=== PATIENT | male | born 1955 | race Caucasian/White ===

== ENCOUNTER → 2016-09-27 | Outpatient (CLI) | payer OTHER ==
[~2016-09-27] MED LIST: APRESOLINE-DPS25 MG PO; AZELASTINE137 MCG/0. NS; BUMETANIDE2 MG PO; BUMEX DPS1 MG PO; CARDIZEM CD DP120 MG PO; CARVEDILOL25 MG PO; CATAPRES0.3 MG PO; COUMADIN4 MG PO; DAILY MULTIPLE1 EAC1 PO; DUONEB DPS3 ML IH; FEOSOL-DPS325 MG PO; FLEXERIL-DPS10 MG PO; FLONASE 0.05% D16 GM NS; GLUCOPHAGE1000 MG PO; GLUCOTROL DPS10 MG PO; IMDUR DPS60 MG PO; INVANZ1 GM IV; KENALOG OINT. 015 GM TP; KLOR-CON M2020 ME1 PO; LANOXIN250 MCG PO; LORCET PLUS 7.1 EACH PO; MIRALAX PACKET17 GM PO; MONTELUKAST SOD10 MG PO; NORCO 5-325 TA1 EACH PO; NOVOLOG100 UNIT/2 SQ; OXY IR DPS5 MG PO; PRILOSEC DPS20 MG PO; RIFAMPIN300 MG PO; SENOKOT DPS8.6 MG PO; SLOW-MAG71.5 MG PO; TYLENOL DPS325 MG PO; ULTRAM DPS50 MG PO; VANCO 1.251.25 GM/25 IV; ZESTRIL DPS40 MG PO; ZOCOR80 MG PO; ZYRTEC DPS10 MG PO
== END | disposition home or self-care (01) ==
LOC: PTH.S 09:21
DX: M00.9 Pyogenic arthritis, unspecified (principal)

== ENCOUNTER → 2016-10-04 | Outpatient (CLI) | payer OTHER | END | disposition home or self-care (01) | LOC: RAD.S 11:54 → PTH.S 12:00 → RAD.S 13:00 | PROC: 0S9D3ZZ Drainage of Left Knee Joint, Percutaneous Approach (ICD-10-PCS; principal; 2016-10-04) | DX: M00.9 Pyogenic arthritis, unspecified (principal); M79.89 Other specified soft tissue disorders; M25.562 Pain in left knee ==

== ENCOUNTER 2016-10-06 14:43 | Inpatient (IN) | payer OTHER ==
[~2016-10-06 14:43] MED LIST changes: -APRESOLINE-DPS25 MG PO; -AZELASTINE137 MCG/0. NS; -BUMETANIDE2 MG PO; -BUMEX DPS1 MG PO; -CARDIZEM CD DP120 MG PO; -CATAPRES0.3 MG PO; -COUMADIN4 MG PO; -DAILY MULTIPLE1 EAC1 PO; -DUONEB DPS3 ML IH; -FEOSOL-DPS325 MG PO; -FLONASE 0.05% D16 GM NS; -GLUCOPHAGE1000 MG PO; -IMDUR DPS60 MG PO; -INVANZ1 GM IV; -KENALOG OINT. 015 GM TP; -KLOR-CON M2020 ME1 PO; -LANOXIN250 MCG PO; -LORCET PLUS 7.1 EACH PO; -MONTELUKAST SOD10 MG PO; -NOVOLOG100 UNIT/2 SQ; -PRILOSEC DPS20 MG PO; -RIFAMPIN300 MG PO; -SLOW-MAG71.5 MG PO; -ULTRAM DPS50 MG PO; -VANCO 1.251.25 GM/25 IV; -ZESTRIL DPS40 MG PO; -ZOCOR80 MG PO; -ZYRTEC DPS10 MG PO
[2016-10-14] MEDS ORDERED: VANCO 1.251.25 GM/25 IV (13:42)
[2016-10-14] MEDS ORDERED: COUMADIN4 MG PO (13:49)
[2016-11-07] MEDS ORDERED: ZESTRIL DPS40 MG PO (14:03)
[2016-11-07] MEDS ORDERED: CARDIZEM CD DP120 MG PO (14:03)
[2016-11-07] MEDS ORDERED: COUMADIN4 MG PO ×2 (14:04)
[2016-11-07] MEDS ORDERED: ZOCOR80 MG PO (14:04)
[2016-11-07] MEDS ORDERED: MONTELUKAST SOD10 MG PO (14:05)
[2016-11-07] MEDS ORDERED: GLUCOPHAGE1000 MG PO (14:05)
[2016-11-07] MEDS ORDERED: PRILOSEC DPS20 MG PO (14:05)
[2016-11-07] MEDS ORDERED: FLONASE 0.05% D16 GM NS (14:06)
[2016-11-07] MEDS ORDERED: AZELASTINE137 MCG/0. NS (14:06)
[2016-11-07] MEDS ORDERED: CATAPRES0.3 MG PO (14:08)
[2016-11-07] MEDS ORDERED: DAILY MULTIPLE1 EAC1 PO (14:08)
[2016-11-07] MEDS ORDERED: KENALOG OINT. 015 GM TP (14:09)
[2016-11-07] MEDS ORDERED: ULTRAM DPS50 MG PO (14:09)
[2016-11-07] MEDS ORDERED: ZYRTEC DPS10 MG PO (14:09)
[2016-11-07] MEDS ORDERED: BUMETANIDE2 MG PO (14:10)
[2016-11-07] MEDS ORDERED: FEOSOL-DPS325 MG PO (14:10)
[2016-11-07] MEDS ORDERED: APRESOLINE-DPS25 MG PO (14:10)
[2016-11-07] MEDS ORDERED: RIFAMPIN300 MG PO (14:10)
[2016-11-07] MEDS ORDERED: LANOXIN250 MCG PO (14:11)
[2016-11-07] MEDS ORDERED: SLOW-MAG71.5 MG PO (14:11)
[2016-11-07] MEDS ORDERED: IMDUR DPS60 MG PO (14:11)
[2016-11-07] MEDS ORDERED: KLOR-CON M2020 ME1 PO (14:11)
[2016-11-07] MEDS ORDERED: DUONEB DPS3 ML IH (14:11)
[2016-11-07] MEDS ORDERED: LORCET PLUS 7.1 EACH PO (14:12)
[2016-11-07] MEDS ORDERED: NOVOLOG100 UNIT/2 SQ (14:12)
[2016-11-07] MEDS ORDERED: INVANZ1 GM IV (14:14)
[2016-11-07] MEDS ORDERED: CARVEDILOL25 MG PO (14:14)
[2016-11-07] MEDS ORDERED: BUMEX DPS1 MG PO (14:15)
== END 2016-10-13 15:31 | disposition home or self-care (01) | DRG 464 ==
DX: T84.54XA Infection and inflammatory reaction due to internal left knee prosthesis, initial encounter (principal); L03.116 Cellulitis of left lower limb; J96.10 Chronic respiratory failure, unspecified whether with hypoxia or hypercapnia; Z68.42 Body mass index [BMI] 45.0-49.9, adult; E66.01 Morbid (severe) obesity due to excess calories; I10 Essential (primary) hypertension; I48.2 Chronic atrial fibrillation; R31.29 Other microscopic hematuria; D64.9 Anemia, unspecified; I51.7 Cardiomegaly; L30.8 Other specified dermatitis; K21.9 Gastro-esophageal reflux disease without esophagitis; B95.61 Methicillin susceptible Staphylococcus aureus infection as the cause of diseases classified elsewhere; I87.2 Venous insufficiency (chronic) (peripheral); E11.9 Type 2 diabetes mellitus without complications; I25.10 Atherosclerotic heart disease of native coronary artery without angina pectoris; I48.91 Unspecified atrial fibrillation; G47.33 Obstructive sleep apnea (adult) (pediatric); Z95.5 Presence of coronary angioplasty implant and graft; Z87.891 Personal history of nicotine dependence

== ENCOUNTER 2016-10-16 10:05 | Inpatient (IN) | payer OTHER ==
[~2016-10-16] VITALS: Ht 177.8 cm; Wt 140.4 kg
[~2016-10-16 10:05] MED LIST changes: +COUMADIN4 MG PO; +VANCO 1.251.25 GM/25 IV
--- NOTE | 2016-10-19 11:06 | CO ---
ADMIT: 10/16/2016 RM/LOC: 314 [facility] MR#: [id number] [address] [address] MELVI BUTCHER [address] [facility] [place] [address] Consultation SEX: M AGE: 61 : 1955 DATE OF CONSULTATION: 10/17/2016 ATTENDING PHYSICIAN: Yue Macdonald CONSULTING PHYSICIAN: Elisabeth Leonardo MD REASON FOR CONSULT: Sepsis. Thank you, Dr. Macdonald, for the consult and involving me in this patient's care. HISTORY OF PRESENT ILLNESS: Mr. 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 He was admitted at the beginning of the month and underwent irrigation and debridement of his left prosthetic joint on October 07, 2016. He is allergic to penicillin, hence, was put on vancomycin for the infection. He was discharged on IV vancomycin and rifampin. Yesterday, while in the short-stay, he complained of significant shortness of breath and was transferred to ER for hypoxia. He required BiPAP. He was also noted to be in atrial fibrillation with rapid ventricular rate. A CTA chest was done, which did not show any pulmonary embolus and he was noted to have acute CHF and bilateral pulmonary edema. He is currently in ICU for the same. Per the patient, he had some subjective fevers at home and he was noted to have fever in the ER. Per the patient, since last 2 days, he had some serous drainage on the left knee and increased swelling. PAST MEDICAL HISTORY: Obesity; coronary artery disease, status post stenting; atrial fibrillation; hypertension; obstructive sleep apnea; hyperlipidemia. ALLERGIES: TO CEFACLOR AND PENICILLIN, WHICH CAUSES HIVES. SOCIAL HISTORY: He lives at home with his in [place]. Denies any smoking, alcohol, or recreational drug use. FAMILY HISTORY: Significant for heart disease and diabetes in his mother and cancer in his father. CURRENT MEDICATIONS: Include: 1. Catapres. 2. Coreg. 3. Coumadin. 4. Glucophage. 5. Glucotrol. 6. Rifampin 600 mg twice daily. 7. Singulair. 8. Multivitamin. 9. Zestril. 10.Zocor. ADMIT: 10/16/2016 RM/LOC: 314 [facility] MR#: [id number] [address] [address] MELVI BUTCHER [address] [facility] [place] [address] Consultation SEX: M AGE: 61 : 1955 11.Zyrtec. 12.Insulin sliding scale. 13.Kenalog cream. 14.Bumex. 15.Vancomycin 2 g once daily. REVIEW OF SYSTEMS: Ten-point review of systems negative except as mentioned in the HPI. PHYSICAL EXAMINATION: VITAL SIGNS: Current temperature 99.4, T-max 100.9, heart rate 92, respirations 16, blood pressure 115/83, 94% on 2 L. GENERAL: No acute distress. HEENT. Head, normocephalic and atraumatic. Extraocular movements intact. LYMPH: No palpable anterior/posterior cervical or supraclavicular lymphadenopathy. CHEST: Clear to auscultation bilaterally anteriorly. Mildly decreased breath sounds at bases. CARDIOVASCULAR: S1, S2 heard. Irregular rate and rhythm. ABDOMEN: Soft, obese, and nontender. SKIN: Diffuse macular rash is improving. MUSCULOSKELETAL: The left knee is warm, swollen, mild erythema around the micheal noted. On pressure, mild purulent drainage expressed from the inferior part of the incision and serosanguineous from middle part of the incision. PSYCH: Normal affect. Memory intact. ASSESSMENT AND PLAN: 1. Sepsis secondary to #2. 2. Left knee methicillin-sensitive Staphylococcus aureus prosthetic joint ADMIT: 10/16/2016 RM/LOC: 314 [facility] MR#: [id number] [address] [address] MELVI BUTCHER [address] [facility] [place] [address] Consultation SEX: M AGE: 61 : 1955 infection, status post I and D on 10/07/2016. Purulent drainage expressed from the incision site and he may need repeat washout. Orthopedics is on board. For now, continue with IV vancomycin and rifampin. I did take a swab for repeat culture. His blood cultures are negative so far. 3. Atrial fibrillation with rapid ventricular response. 4. Hypertension. 5. Neutrophilic dermatosis is improving. 6. Pulmonary edema. 7. Acute hypoxic respiratory failure. 8. Obesity. Thank you for the consult and I will continue to follow the patient. Elisabeth Leonardo MD/ hemalatha JOB #: [id number] CC: Yue Macdonald, Attending Physician Yue Macdonald, Family Physician
--- NOTE | 2016-10-19 14:08 | CO ---
ADMIT: 10/16/2016 RM/LOC: 314 [facility] MR#: [id number] [address] [address] MELVI BOYLE [address] [place] [address] Consultation SEX: M AGE: 61 : 1955 DATE OF CONSULTATION: 10/16/2016 ATTENDING PHYSICIAN: Yue Macdonald CONSULTING PHYSICIAN: Crescencio Thakkar MD CHIEF COMPLAINT: Shortness of breath. HISTORY OF PRESENT ILLNESS: The patient is a 61-year-old male, who has a previous history of permanent atrial fibrillation and coronary artery disease. Recently, he had been seeing Dr. Pink for some shortness of breath and is under his care. He had a recent echocardiogram, which was normal and a stress test which apparently did not demonstrate any significant ischemia. He also had been diagnosed with a left knee infection. He is currently undergoing antibiotic treatment IV for this. Because of shortness of breath while getting his IV antibiotics, he was admitted with possible heart failure. We are asked to see him for further evaluation. In speaking with the patient, he has not noticed any chest pain or chest tightness. He has noted that his heart rate is a little bit faster recently. His main complaint is shortness of breath. He does have some chronic lower extremity edema changes, but has not noticed any worsening edema. No other complaints. PAST MEDICAL HISTORY: Significant for: 1. Coronary artery disease with previous stenting of the RCA and LAD with chronically occluded circumflex by previous heart catheterization report. 2. Permanent atrial fibrillation. 3. Hypertension. 4. Obesity. 5. Hyperlipidemia. 6. Reflux. ALLERGIES AND INTOLERANCES: Ceclor. FAMILY HISTORY: Significant for mother, who had heart disease and diabetes. Father had cancer. SOCIAL HISTORY: Lives with his in [place]. He does not smoke or use any alcohol or drug use. REVIEW OF SYSTEMS: GENERAL: He does have some occasional fatigue. Denies fever, chills, sweats, rash, or weight loss. EYES: Denies double vision, blurred vision, cataracts, or glaucoma. ENT: He has some difficulty with hearing. Denies problems with nose, mouth or throat. PULMONARY: He has chronic shortness of breath. Denies cough, sputum production, asthma, emphysema or bronchitis. Denies snoring loudly, wakefulness at night, or fatigue upon awakening. GASTROINTESTINAL: Denies heartburn or difficulty swallowing. No change in bowel habits. Denies dark or bloody stools. No history of ulcers, hiatal ADMIT: 10/16/2016 RM/LOC: 314 [facility] MR#: [id number] [facility] [address] [address] [place] [address] [address] [facility] [place] [id number] Consultation SEX: M AGE: 61 : 1955 hernia, or gallbladder or liver disease. GENITOURINARY: Denies dysuria, hematuria, nocturia, urinary tract infection, or kidney stones. Denies history of renal insufficiency or failure. MUSCULOSKELETAL: He has arm and leg pains. Denies history of arthritis or gout. Denies muscle or joint pains. ENDOCRINE: Denies history of thyroid dysfunction or diabetes. HEMATOLOGIC: Denies history of anemia, easy bruising, or cancer. NEUROLOGIC: Denies chronic headaches, dizziness, syncope, stroke, seizures or numbness or tingling. PSYCHIATRIC: Denies history of mental illness or feelings of depression. PHYSICAL EXAMINATION: VITAL SIGNS: Blood pressure was 164/100, heart rate currently 90s to 110s, respirations 24, and temperature was 100.9 degrees Fahrenheit. SKIN: [place]umann, warm and dry. EYES: Sclerae clear. No xanthelasmas. ENT: Oral mucosa is pink and moist. No jugular venous distention or carotid bruits. CHEST: Respirations are even and unlabored. Lungs having diminished breath sounds. HEART: Irregularly irregular. ABDOMEN: Soft and nontender. MUSCULOSKELETAL: Gait is normal. EXTREMITIES: Having mild edema with chronic venous stasis changes present. PSYCHIATRIC: Alert and oriented. Mood and affect are appropriate. ASSESSMENT: 1. Permanent atrial fibrillation. 2. Cdlkj-dg-hndvmty diastolic heart failure. 3. Coronary artery disease. 4. Hypertension. 5. Hyperlipidemia. 6. Recent left knee infection. PLAN: At this point, the patient will undergo diuresis. He does have Bumex ordered and we will increase titration on this if needed for good volume removal. His heart rates are also little fast, so we will continue with rate control titrating up on medications as his blood pressure will tolerate, which should not be a big problem at the moment as he is pretty hypertensive. We will continue on his anticoagulation and decide further treatment as we go. Crescencio Thakkar MD/ hemalatha JOB #: [id number] CC: Yue Macdonald, Attending Physician ADMIT: 10/16/2016 RM/LOC: 314 [facility] MR#: [id number] [address] [place] [address] BO[place]VI [address] [address] [facility] [place] [address] Consultation SEX: M AGE: 61 : 1955 Yue Macdonald, Family Physician
--- NOTE | 2016-10-22 21:34 | ER ---
ADMIT: 10/16/2016 RM/LOC: ER [facility] MR#: [id number] [address] [address] MELVI BOYLE [address] [facility] [place] [address] Emergency Room Report SEX: M AGE: 61 : 1955 DATE: 10/16/2016 This 61-year-old gentleman, who was at the short stay, receiving outpatient IV antibiotic therapy for recent knee infection when he became acutely short of breath. He denied any other symptoms, merely that he could not catch his breath. He was uncertain whether it was worse with lying down or not. He does complain of nonproductive cough. It has been there for the past several days. Denied any chest pain or palpitations. REVIEW OF SYSTEMS: Essentially negative except for the above-mentioned. PAST HISTORY: Atrial fibrillation; hypertension; sleep apnea, for which wears he CPAP; recent knee surgery which was a washout for presumed infection. PHYSICAL EXAM: GENERAL: Reveals 61-year-old gentleman, in moderate amount of distress complaining of shortness of breath. LUNGS: Clear to auscultation other than some rhonchi at the bases bilaterally. Some mild wheezing. CARDIOVASCULAR: Regular rate and rhythm and rapid. ABDOMEN: Morbidly obese. EXTREMITIES: Reveal recent surgical site on left knee. He has numerous petechiae throughout his extremities. EMERGENCY ROOM COURSE: Sepsis workup was initiated. Pertinent labs; hemoglobin 9.1, platelets 152. BNP was 8369. Magnesium 1.4. CTA of the chest revealed no PE or congestive chest heart failure. IV diltiazem was given in the Emergency Department for rate control. When he returned from the CT scan, he became acutely hypoxic, his heart rate was in the 170s to 180s at fibrillation. The diltiazem drip was increased, BiPAP was initiated. Nitroglycerin was given sublingual and nitro drip was started. The patient reported feeling improved at time of this dictation. ADMISSION DIAGNOSES: 1. Exacerbation of congestive heart failure. 2. Atrial fibrillation. 3. Rapid ventricular rate. 4. Hypomagnesemia which was replenished in the Emergency Department with 2 g of mag sulfate. The patient is being admitted to the ICU. Hayden Carpenter MD/ hemalatha JOB #: [id number] CC: Hayden Carpenter MD, Attending Physician Carly Pulido, Family Physician
--- NOTE | 2016-10-24 11:27 | CO ---
ADMIT: 10/16/2016 RM/LOC: 314 [facility] MR#: [id number] [address] [address] MELVI BOYLE [address] [facility] [place] [address] Consultation SEX: M AGE: 61 : 1955 DATE OF CONSULTATION: 10/17/2016 ATTENDING PHYSICIAN: Yue Macdonald CONSULTING PHYSICIAN: Angelia Solomon MD SUBJECTIVE: Melvi is a 61-year-old male, who is known to our Orthopedic Service who had a recent left knee I and D with poly exchange and antibiotic bead placement due to septic left total knee arthroplasty done by Dr. Solomon on 10/07/2016. He was in the hospital until discharge last week on . He did well at home for the first couple of days and then over the weekend, started to have some serous drainage. He is on IV antibiotics daily vancomycin. He was in for that yesterday and was having shortness of breath. He was transferred over to the Emergency Department where he was evaluated and found to have BNP of 8369. There was some concern for sepsis as well. Apparently had a fever of 100.9. Due to shortness of breath, he was admitted and a Cardiology consultation was made. He was seen by Dr. Thakkar and is currently in the Intensive Care Unit being treated for atrial fibrillation with acute on chronic diastolic heart failure. Due to the recent knee surgery and serous drainage from the knee, orthopedic evaluation of the knee has been requested. OBJECTIVE: VITAL SIGNS: Vitals are currently stable. His temperature has been running in the 99.4 to 100.1 today. Please see vitals section on electronic medical record for complete details. GENERAL: This is an otherwise comfortable well-appearing 61-year-old male, who is in no distress. He is oriented x3, pleasant, interactive, and answers to all questions appropriately. EXTREMITIES: Exam of the left knee shows that his micheal are still in place status post I and D. On palpation, he really does not have a lot of pain and very mild tenderness is all, very minimal warmth right now. With palpation, I am able to express clear serous type fluid diffusely throughout the length of the incision except for the proximal portion, really not much comes out there, but the distal portion, I am able to get the fluid out. No appreciable effusion at this time and his range of motion is quite comfortable, lacks the last few degrees of terminal extension and flexion comfortably to 95, limited by some stiffness in the chair he is sitting in, but again it is not painful. He can actively extend and flex the knee without discomfort. Ligaments are stable. Patella tracks centrally. He has diffuse changes of chronic edema and stasis of the midtibia down. His foot is significantly swollen as well. Neurovascular status is otherwise intact. PERTINENT LABS: White count 7.7 today, down from 9.2 yesterday, hemoglobin 7.8, down from 9.1. Sedimentation rate last week was 120 on the 19th and CRP on the 4th for reference was 18.6. ASSESSMENT: Ten days status post I and D with polyethylene exchange and antibiotic beads for septic left total knee arthroplasty. ADMIT: 10/16/2016 RM/LOC: 314 [facility] MR#: [id number] [address] [place] [phone] MELVI BOYLE [address] [facility] [address] [place] [address] Consultation SEX: M AGE: 61 : 1955 PLAN: Based on what he looks like today, I do not see any surgical indications for rewashout. He does have serous drainage. I think the lot of this is coming from his fluid overload secondary to his congestive heart failure. If we can get his edema down with compression and elevation and continued use of his diuretic, I think that he will quit draining serous fluid. He is already on appropriate antibiotics. There really is not anything further to do for him surgically right now other than watchful waiting. We will continue to follow him through his hospital stay here and follow up with him on our scheduled planned date as well. Probably, since he is having the continued serous drainage, we will keep his micheal until his wound is more dry, so this can be at least past the two week point, which would be Monday of this week. He is probably looking at about 3 weeks postop before this micheal come out. Again, at this time, no surgical indication. We will continue to follow. Héctor Montero PA-C / Angelia Solomon MD / hemalatha JOB #: [id number] CC: Yue Macdonald, Attending Physician Yue Macdonald, Family Physician
--- NOTE | 2016-11-07 08:10 | HP ---
ADMIT: 10/16/2016 RM/LOC: 416 [facility] MR#: [id number] [address] [address] MELVI BOYLE [address] [facility] [place] [address] History and Physical SEX: M AGE: 61 : 1955 DATE OF SERVICE: HISTORY OF PRESENT ILLNESS: He presented today in the outpatient [facility] for IV antibiotics with evidence of persistent fever. He is admitted to the hospital at this time secondary to persistent recurrent fever, temp up to 102, concerns about septic joint versus concerns about other etiologies. He has had long recurrent hospitalizations x2. Initially was admitted on 10/16/2006 with evidence of left knee methicillin-sensitive Staph aureus at a prosthetic joint. He underwent irrigation and debridement of this left prosthetic joint on 10/07/2016. He is allergic to penicillin. He was placed on vancomycin and discharged on vancomycin and Rocephin. He was admitted to [facility] on 10/16 with atrial fibrillation with rapid rate with evidence of diastolic heart failure. CTA which was done did not show any pulmonary embolism, but it was noted to have acute congestive heart failure, bilateral pulmonary edema. He was treated and evaluated by myself, Orthopedics, as well as ID and Cardiology, and subsequently was discharged home. He presents to the emergency room in the outpatient setting with persistent recurrent fevers and concerns about underlying infection in his knee. He was seen and evaluated in the ER by Orthopedics. They did not feel that he had any evidence of infection in the knee but were concerned maybe that he had other sites of infection, and he will be admitted OPO overnight at minimum to look for other etiologies of infection. He had evaluation with a white count of 5.3, hemoglobin 9.0, platelet count of 196,000. His procalcitonin was 0.2. UA showed 2+ blood. His INR was 2.79. Sodium of 131, potassium of 3.9. His magnesium was 1.2. His EKG showed atrial fibrillation. He, at this time, is admitted for continued evaluation and care. PAST MEDICAL HISTORY: He has had a history of abnormal cardiac stress test with when he is clinically stable, plans to do another stress test. MEDICATIONS: His meds are numerous. He is on: 1. Diltiazem 420 mg one daily. 2. Lisinopril 40 mg daily. 3. Zocor 80 mg daily. 4. Coumadin 4 mg on Monday, Monday, , Monday. 5. Coumadin 3 mg Monday, Monday, and Monday. 6. Coreg 37.5 b.i.d. 7. Glipizide 10 mg, which was stopped yesterday. 8. Metformin 1000 mg b.i.d. 9. Singulair 10 mg daily. 10.Omeprazole 20 mg daily. 11.Astelin one spray each nostril daily. 12.Flonase mcg daily. 13.Multivitamin daily. 14.Catapres 0.3 mg, which was decreased to b.i.d. 15.Zyrtec 10 mg daily. 16.Kenalog 0.1% application b.i.d. 17.Tramadol 50 mg, one to two tabs every 4 hours as needed. 18.Rifampin 300 mg b.i.d. ADMIT: 10/16/2016 RM/LOC: 416 [facility] MR#: [id number] [address] [address] MELVI BOYLE [address] [place] [address] [place] [address] History and Physical SEX: M AGE: 61 : 1955 19.Apresoline 25 mg four times a day. 20.Bumex which was changed to 3 mg at 4:00 p.m. and 2 mg in the p.m. dosing. Also, he was placed on: 1. Feosol 325 mg daily. 2. Imdur 60 mg daily. 3. Potassium 20 mEq daily. 4. Lanoxin 125 mcg daily. 5. Slow-Mag daily. 6. DuoNeb breathing treatments. 7. NovoLog sliding scale insulin. 8. Lortab 7.5 mg one or two every 4-6 hours. 9. Continue vancomycin. ALLERGIES: TO PENICILLIN. ASSESSMENT AND PLAN: Admission of an elderly white male with known methicillin-resistant Staphylococcus aureus infection dating back approximately a month, status post I and D with placement of medicated beads. With recurrent hospitalization with diastolic heart failure, persistent atrial fibrillation with rapid rate. Severe hypertension. Complicated by mild renal insufficiency, with subsequent discharge with readmission with persistent recurrent fever. Dr. Leonardo is on-call this weekend. She will see and evaluate him in the morning. Orthopedics has seen him in the emergency room. They do not feel that the source of his problem is secondary to his knee. We will look for other etiologies. Yue Macdonald MD/ hemalatha JOB #: [id number] CC: Yue Macdonald MD, Attending Physician Yue Macdonald MD, Family Physician
[2016-11-07] MEDS ORDERED: ZESTRIL DPS40 MG PO (14:03)
[2016-11-07] MEDS ORDERED: CARDIZEM CD DP120 MG PO (14:03)
[2016-11-07] MEDS ORDERED: ZOCOR80 MG PO (14:04)
[2016-11-07] MEDS ORDERED: COUMADIN4 MG PO ×2 (14:04)
[2016-11-07] MEDS ORDERED: MONTELUKAST SOD10 MG PO (14:05)
[2016-11-07] MEDS ORDERED: GLUCOPHAGE1000 MG PO (14:05)
[2016-11-07] MEDS ORDERED: PRILOSEC DPS20 MG PO (14:05)
[2016-11-07] MEDS ORDERED: FLONASE 0.05% D16 GM NS (14:06)
[2016-11-07] MEDS ORDERED: AZELASTINE137 MCG/0. NS (14:06)
[2016-11-07] MEDS ORDERED: CATAPRES0.3 MG PO (14:08)
[2016-11-07] MEDS ORDERED: DAILY MULTIPLE1 EAC1 PO (14:08)
[2016-11-07] MEDS ORDERED: ZYRTEC DPS10 MG PO (14:09)
[2016-11-07] MEDS ORDERED: ULTRAM DPS50 MG PO (14:09)
[2016-11-07] MEDS ORDERED: KENALOG OINT. 015 GM TP (14:09)
[2016-11-07] MEDS ORDERED: BUMETANIDE2 MG PO (14:10)
[2016-11-07] MEDS ORDERED: RIFAMPIN300 MG PO (14:10)
[2016-11-07] MEDS ORDERED: FEOSOL-DPS325 MG PO (14:10)
[2016-11-07] MEDS ORDERED: APRESOLINE-DPS25 MG PO (14:10)
[2016-11-07] MEDS ORDERED: IMDUR DPS60 MG PO (14:11)
[2016-11-07] MEDS ORDERED: LANOXIN250 MCG PO (14:11)
[2016-11-07] MEDS ORDERED: DUONEB DPS3 ML IH (14:11)
[2016-11-07] MEDS ORDERED: KLOR-CON M2020 ME1 PO (14:11)
[2016-11-07] MEDS ORDERED: SLOW-MAG71.5 MG PO (14:11)
[2016-11-07] MEDS ORDERED: LORCET PLUS 7.1 EACH PO (14:12)
[2016-11-07] MEDS ORDERED: NOVOLOG100 UNIT/2 SQ (14:12)
[2016-11-07] MEDS ORDERED: CARVEDILOL25 MG PO (14:14)
[2016-11-07] MEDS ORDERED: INVANZ1 GM IV (14:14)
[2016-11-07] MEDS ORDERED: BUMEX DPS1 MG PO (14:15)
--- NOTE | 2016-11-15 07:10 | DS ---
ADMIT: 10/16/2016 RM/LOC: 416 [facility] MR#: [id number] [address] [address] MELVI BUTCHER [address] [facility] [place] [address] General Discharge Summary SEX: M AGE: 61 : 1955 CORRECTED: 11/14/2016 1126 [facility] ADMISSION DATE: 10/16/2016 DISCHARGE DATE: 10/21/2016 DISCHARGE DIAGNOSES: 1. [id number] diastolic heart failure. 2. History of permanent atrial fibrillation. 3. 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 4. Obesity. 5. Sleep apnea. 6. Hypertension. 7. Hyperlipidemia. HISTORY OF PRESENT ILLNESS: Well documented in his H and P. LABORATORY AND RADIOGRAPHIC ASSESSMENT: As follows: White count was 7.7 on admission and hemoglobin was 7.8. Hemoglobin at its low was on 10/19/2016 is 7.7, repeat hemoglobin on 10/20 was 8.0. INR at the time of discharge, 1.5. Urinalysis showed no acute abnormalities. On admission, potassium 3.6, BUN and creatinine 17 and 1.2, blood sugar 103, and magnesium 1.2. At the time of the day of discharge, his sodium was 135, potassium 3.3, BUN and creatinine 18 and 1.4. ABGs on admission on 2 L showed a pH of 7.47, pCO2 of 33, and pO2 of 77. Blood cultures showed no growth. Wound culture showed no growth after three days. CT of chest showed no pulmonary embolism identified. Overall evaluation of the pulmonary artery is limited due to suboptimal contrast opacification. Findings suggest acute cardiac decompensation, congestive heart failure, small bilateral pleural effusions, patchy infiltrate in the right upper lobe. Chest x-ray at the time of discharge shows cardiomegaly with mild interstitial edema, improved. Ultrasound of his kidneys showed bilateral kidneys are enlarged. No hydronephrosis. Doppler of the kidneys showed bilateral renal arteries and veins are patent, somewhat limited secondary to the patient's habitus. His EKG showed atrial fibrillation with rapid ventricular rate. HOSPITAL COURSE: Mr. Butcher is a well-known patient to myself, who was recently hospitalized with an infected total knee arthrotomy. He has a known history of permanent atrial fibrillation. He was on chronic anticoagulation, who as well as had a skin rash which is resolving. He was discharged home receiving IV antibiotics and subsequently was readmitted to the hospital after being seen and evaluated in short stay after having increasing shortness of breath. Initially was seen and sent to ER for further evaluation. He was placed in ICU. Daily weight. Cardiology to follow. Cardiac enzymes were performed serially. He was started on breathing treatments as well as he has an allergy to Lasix and was started on IV Bumex. He did have slow diuresis with improvement in his symptoms. Follow up of his diabetes with Accu-Cheks before meals and at bedtime low dose sliding scale insulin. He had significant difficulties with blood pressure with continued monitoring and med ADMIT: 10/16/2016 RM/LOC: 416 [facility] MR#: [id number] [address] [place] [id number] [place] [address] [place] [address] General Discharge Summary SEX: M AGE: 61 : 1955 changes due to persistent hypertension. He was seen and evaluated and followed by Dr. Leonardo of Infectious Disease. He underwent a culture of his serous drainage from his knee, which showed no evidence of bacteria. He subsequently diuresed. His blood pressure improved dramatically. His atrial fib rate control. He subsequently was discharged home with Coumadin 4 mg p.o. on Monday, Monday, , and Monday; 3 mg on Monday, Monday, and Monday. Potassium supplementation prior to discharge. Please see his MAR for his discharge medications. He was discharged to continue IV antibiotic therapy for his total knee arthrotomy. He will have follow up with Dr. Pink for further cardiac issues. We will continue to monitor his blood pressure closely as an outpatient. He will have follow up with me in 7 to 10 days. At the time of his discharge, he was on: 1. Apresoline 25 mg q.i.d. 2. Bumex 2 mg b.i.d. 3. Cardizem 420 mg daily. 4. Catapres 0.3 mg t.i.d. 5. Claritin 10 mg daily. 6. Coreg 25 mg b.i.d. 7. Coumadin as per his usual routine. 8. Iron 325 mg daily. 9. Glucophage 1000 mg b.i.d. 10.Glucotrol 10 mg b.i.d. 11.Imdur 60 mg daily. 12.Potassium supplementation 20 mEq b.i.d. 13.Lanoxin 0.025 mg daily. 14.Protonix 20 mg daily. 15.Rimactane 300 mg b.i.d. 16.Singulair 10 mg daily. 17.Slow-Mag therapeutic vitamins. 18.Zestril 40 mg. 19.Zocor 40 mg daily at bedtime. 20.Hydrocodone for pain management. 21.Ultram 50 mg as well as for pain management. 22.Astelin. 23.Flonase. He was discharged in stable condition. His IV antibiotics were addressed by Dr. Leonardo at discharge. Yue Macdonald MD/ modl JOB #: [id number] CC: Yue Macdonald MD, Attending Physician Yue Macdonald MD, Family Physician ADMIT: 10/16/2016 RM/LOC: 416 [facility] MR#: [id number] [address] [address] MEL[place]CH[place] [address] [place] [address] General Discharge Summary SEX: M AGE: 61 : 1955 CORRECTED: 11/14/2016 1126 [facility]
== END 2016-10-21 13:36 | disposition home or self-care (01) | DRG 291 ==
LOC: ER 10:05 → 3ICU 12:30 → 4PCU 10-18 14:32
PROVIDERS: ADMIT Internal Medicine
DX: I11.0 Hypertensive heart disease with heart failure (principal); A41.9 Sepsis, unspecified organism; J96.01 Acute respiratory failure with hypoxia; N17.9 Acute kidney failure, unspecified; Z68.42 Body mass index [BMI] 45.0-49.9, adult; I50.33 Acute on chronic diastolic (congestive) heart failure; E83.42 Hypomagnesemia; I48.2 Chronic atrial fibrillation; E11.9 Type 2 diabetes mellitus without complications; L98.2 Febrile neutrophilic dermatosis [Sweet]; T84.54XD Infection and inflammatory reaction due to internal left knee prosthesis, subsequent encounter; I25.10 Atherosclerotic heart disease of native coronary artery without angina pectoris; E03.9 Hypothyroidism, unspecified; G47.33 Obstructive sleep apnea (adult) (pediatric); E78.5 Hyperlipidemia, unspecified; K21.9 Gastro-esophageal reflux disease without esophagitis; E66.9 Obesity, unspecified; Z95.5 Presence of coronary angioplasty implant and graft; Z79.84 Long term (current) use of oral hypoglycemic drugs

== ENCOUNTER 2016-11-04 13:46 | Inpatient (IN) | payer OTHER ==
[~2016-11-04] VITALS: Ht 177.8 cm; Wt 140.7 kg
--- NOTE | 2016-11-05 08:46 | ER ---
ADMIT: 11/04/2016 RM/LOC: 433 [facility] MR#: [id number] [address] [address] BOYLEMELVI [address] [facility] [place] [address] Emergency Room Report SEX: M AGE: 61 : 1955 DATE: 11/04/2016 A 61-year-old gentleman, who has had difficult surgical history with a prosthetic knee with subsequent infection. Open washout, antibiotic placed in the knee. So, he is receiving long-term IV antibiotics per Infectious Disease. He was seen today and noted to have a fever, subsequently sent over here for evaluation by orthopedist. The orthopedist did not feel that it is his knee. Sepsis workup was done. Sed rate was 110, CRP 13.5. Chest x-ray was unremarkable. The patient was being admitted for fever and for further evaluation of the same fever. Hayden Carpenter MD/ hemalatha JOB #: [id number] CC: Yue Macdonald MD, Attending Physician Yue Macdonald MD, Family Physician
[2016-11-07] MEDS ORDERED: CARDIZEM CD DP120 MG PO (14:03)
[2016-11-07] MEDS ORDERED: ZESTRIL DPS40 MG PO (14:03)
[2016-11-07] MEDS ORDERED: ZOCOR80 MG PO (14:04)
[2016-11-07] MEDS ORDERED: COUMADIN4 MG PO ×2 (14:04)
[2016-11-07] MEDS ORDERED: PRILOSEC DPS20 MG PO (14:05)
[2016-11-07] MEDS ORDERED: MONTELUKAST SOD10 MG PO (14:05)
[2016-11-07] MEDS ORDERED: GLUCOPHAGE1000 MG PO (14:05)
[2016-11-07] MEDS ORDERED: FLONASE 0.05% D16 GM NS (14:06)
[2016-11-07] MEDS ORDERED: AZELASTINE137 MCG/0. NS (14:06)
[2016-11-07] MEDS ORDERED: DAILY MULTIPLE1 EAC1 PO (14:08)
[2016-11-07] MEDS ORDERED: CATAPRES0.3 MG PO (14:08)
[2016-11-07] MEDS ORDERED: KENALOG OINT. 015 GM TP (14:09)
[2016-11-07] MEDS ORDERED: ZYRTEC DPS10 MG PO (14:09)
[2016-11-07] MEDS ORDERED: ULTRAM DPS50 MG PO (14:09)
[2016-11-07] MEDS ORDERED: BUMETANIDE2 MG PO (14:10)
[2016-11-07] MEDS ORDERED: FEOSOL-DPS325 MG PO (14:10)
[2016-11-07] MEDS ORDERED: RIFAMPIN300 MG PO (14:10)
[2016-11-07] MEDS ORDERED: APRESOLINE-DPS25 MG PO (14:10)
[2016-11-07] MEDS ORDERED: KLOR-CON M2020 ME1 PO (14:11)
[2016-11-07] MEDS ORDERED: IMDUR DPS60 MG PO (14:11)
[2016-11-07] MEDS ORDERED: DUONEB DPS3 ML IH (14:11)
[2016-11-07] MEDS ORDERED: LANOXIN250 MCG PO (14:11)
[2016-11-07] MEDS ORDERED: SLOW-MAG71.5 MG PO (14:11)
[2016-11-07] MEDS ORDERED: NOVOLOG100 UNIT/2 SQ (14:12)
[2016-11-07] MEDS ORDERED: LORCET PLUS 7.1 EACH PO (14:12)
[2016-11-07] MEDS ORDERED: INVANZ1 GM IV (14:14)
[2016-11-07] MEDS ORDERED: CARVEDILOL25 MG PO (14:14)
[2016-11-07] MEDS ORDERED: BUMEX DPS1 MG PO (14:15)
--- NOTE | 2016-11-08 15:05 | CO ---
ADMIT: 11/04/2016 RM/LOC: 433 [facility] MR#: [id number] [address] [address] [address] [facility] [place] [address] Consultation SEX: M AGE: 61 : 1955 DATE OF CONSULTATION: 11/05/2016 ATTENDING PHYSICIAN: Yue Macdonald CONSULTING PHYSICIAN: Arley Bowman MD SUBJECTIVE: The patient is a 61-year-old, white male, who is status post left total knee arthroplasty in May by Dr. Solomon. Approximately a month ago. He had an infection and underwent irrigation debridement and polyexchange. He has been on IV vancomycin. In the last couple of days, he has been having increased fevers. He states his knee is not bothering him anymore than usual. Sometimes it is also swollen at the end of day. Dr. Leonardo felt she would like to have the knee aspirated again to check on cultures and how well the IV antibiotics were working. PHYSICAL EXAMINATION: The patient has 1+ effusion of the knee. He has an anterior incision. He had some scabbing. The knee is not real warm. I removed some of the scabbing and there is some soupiness to the wound and some redness around after I removed that scabbing. This is mainly of the distal 2 to 3 inches of the wound and one area proximally. ASSESSMENT AND PLAN: Left total knee status post irrigation debridement for an infection. At this point in time, I sterilely prepped his left knee with Betadine and aspirated 10 mL of serosanguineous fluid. It will be sent for cell count and culture as per Dr. Leonardo's request. I cleaned his anterior incision with Betadine and 4x4s. I am going to have that done twice a day. He definitely does have a little superficial wound infection. I believe Dr. Leonardo is changing the patient's IV antibiotics. We will await culture results. Arley Bowman MD/ hemalatha JOB #: [id number] CC: Yue Macdonald, Attending Physician Yue Macdonald, Family Physician Elisabeth Leonardo MD
--- NOTE | 2016-11-09 11:00 | CO ---
ADMIT: 11/04/2016 RM/LOC: 433 [facility] MR#: [id number] [address] [address] MELVI BOYLE [address] [facility] [place] [address] Consultation SEX: M AGE: 61 : 1955 DATE OF CONSULTATION: 11/04/2016 ATTENDING PHYSICIAN: Yue Macdonald CONSULTING PHYSICIAN: Angelia Solomon MD SUBJECTIVE: Melvi is a 61-year-old male, well known to our Orthopedic Practice and Dr. Solomon's service, with a history of a left total knee septic arthritis that was treated about a month ago with I and D, polyethylene exchange, and placement of vancomycin beads. He has been on IV antibiotics as an outpatient, followed by Infectious Disease. He was seen today by Dr. Leonardo. He had some low-grade fevers and increase in knee effusion with no pain. His temperatures were concerning enough that Dr. Leonardo called over to the office and was instructed that the patient was medically unstable to be seen in the Emergency Department, but if stable, could be followed up outpatient in the clinic with Dr. Solomon next week. He therefore was sent over to the hospital for evaluation secondary to his fever. Discussing with Melvi, he has been doing great. He saw one of our PAs over in the office last week for the remainder of his micheal to come out. He was doing very well. Had no pain and no effusion at that time. 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 He increased his activity significantly and developed joint effusion on Monday on to Monday. He again has not had any pain with that, has been stable. Otherwise, he feels the same with regard to his knee, but he continues to have his low-grade fevers. Given the joint effusion and his history, Orthopedic evaluation in the emergency room was requested. OBJECTIVE: VITAL SIGNS: Currently show blood pressures in the 180s to 190s over 80s to 90s range, his temperatures were between 101 and 102.5. Otherwise, his vitals are stable. GENERAL: The patient is lying comfortably in the hospital [facility] in the exam room #5 of the Emergency Department. He is pleasant, interactive. He is in no distress. MUSCULOSKELETAL: Exam of the left knee shows his incision continues to heal uneventfully. The distal incision has some continued scabbing over, but no drainage, certainly looks stable given his history. He does have trace to 1+ effusion. He has absolutely no pain with range of motion. He has excellent stable looking name, he is very mildly warm to the touch, just a little bit more than his unaffected right side. He has good quadriceps recruitment though, able to do straight leg raise. Again, the lower extremity from the mid tibia down continues to show stable and consistent venous stasis changes. No active cellulitis or obvious signs of infection. His neurovascular status is intact at baseline. LABORATORY AND X-RAY DATA: CRP and sedimentation rate were both done today. CRP is down to 13.5 today from 18.6 on September 27. Sedimentation rate is down to 110 today from 120 on October 12. ADMIT: 11/04/2016 RM/LOC: 433 [facility] MR#: [id number] [address] [place] [id number] MELVI BOYLE [address] [facility] [place] [address] Consultation SEX: M AGE: 61 : 1955 ASSESSMENT: Small left knee joint effusion, possibly due to a significant increase in activity over the last couple of days in the presence of recent joint infection, status post I and D, now four weeks. PLAN: Currently, he is medically stable. Dr. Carpenter continues to work with him in the ER, apparently just changed his antihypertensives yesterday and cut back on his dose, they are going to make changes as appropriate per their expertise. As far as his knee goes, I think that he is stable and his inflammatory markers are decreasing. As long as he is medically stable, we can go ahead and discharge him. We will plan to follow up with him next week with Dr. Solomon in the office for a recheck and talk about a continued plan of care. Héctor Montero PA-C / Angelia Solomon MD / hemalatha JOB #: [id number] CC: Yue Macdonald, Attending Physician Yue Macdonald, Family Physician
--- NOTE | 2016-11-14 08:00 | DS ---
ADMIT: 11/04/2016 RM/LOC: 433 [facility] MR#: [id number] [address] [address] [place] [address] [address] [place] [address] General Discharge Summary SEX: M AGE: 61 : 1955 ADMISSION DATE: 11/04/2016 DISCHARGE DATE: 11/06/2016 DISCHARGE DIAGNOSES: 1. Fever with known history of methicillin-resistant Staph aureus. 2. Total knee infection, currently on IV therapy as an outpatient. 3. History of severe hypertension. 4. Mild renal insufficiency with severe hypertension. 5. Known coronary artery disease, positive stress test with need of a possible cardiac cath when his infectious process has been resolved. HISTORY OF PRESENT ILLNESS: Well documented in his H and P. He was seen by Dr. Solomon as well as Dr. Bowman as well as Dr. Leonardo was on- call this weekend. LABORATORY AND RADIOGRAPHIC ASSESSMENT: As follows: Chest x-ray showed opacity in the right lung base, cardiomegaly. On admission, he was continued on his normal IV antibiotics. He was given clonidine for hypertension. Orthopedics to follow. Had some mild diminishment in his magnesium, he was given IV magnesium. He underwent aspiration of his knee with cell count, C and S. He was subsequently discharged home per Dr. Leonardo with close followup. Invanz 1 g daily until 12/01/2016. Has renal insufficiency. We will monitor his kidney function. Hyponatremia which will be monitored as well as obstructive sleep apnea with continuation of his CPAP. We will continue to follow closely. Yue Macdonald MD/ hemalatha JOB #: [id number] CC: Yue Macdonald MD, Attending Physician Yue Macdonald MD, Family Physician
== END 2016-11-06 14:15 | disposition home or self-care (01) | DRG 863 ==
LOC: ER 13:46 → 4PCU 16:55
PROVIDERS: ADMIT Internal Medicine
PROC: 0S9D3ZX Drainage of Left Knee Joint, Percutaneous Approach, Diagnostic (ICD-10-PCS; principal; 2016-11-05)
DX: T81.4XXA Infection following a procedure, initial encounter (principal); I50.32 Chronic diastolic (congestive) heart failure; I48.1 Persistent atrial fibrillation; I10 Essential (primary) hypertension; B99.9 Unspecified infectious disease; I51.7 Cardiomegaly; L08.9 Local infection of the skin and subcutaneous tissue, unspecified; N28.9 Disorder of kidney and ureter, unspecified; T84.54XD Infection and inflammatory reaction due to internal left knee prosthesis, subsequent encounter; M25.462 Effusion, left knee; Z86.14 Personal history of Methicillin resistant Staphylococcus aureus infection